=== PATIENT | female | born 1940 | race Caucasian/White ===

== ENCOUNTER → 2017-07-29 14:36 | Outpatient (CLI) | payer MEDICARE ==
[2014-07-30 11:19] VITALS: BMI 18.9
[~2017-07-29 14:36] MED LIST: ALBUTEROL2.5 MG/3 M INH; ALENDRONATE SOD70 MG PO; BACLOFEN10 MG PO; PLAVIX75 MG PO; PRILOSEC20 MG PO; PROTONIX40 MG PO; PROVENTIL HFA6.7 GM INH; WELLBUTRIN XL150 M1 PO; XANAX0.25 MG PO
== END | disposition home or self-care (01) ==
LOC: D.CT 14:36
DX: I73.9 Peripheral vascular disease, unspecified (principal)